=== PATIENT | male | born 1965 ===

== ENCOUNTER 2018-09-02 15:38 | Emergency (ER) | payer SELFPAY ==
[~2018-09-02] VITALS: Ht 177.8 cm; Wt 85.0 kg
[2018-09-02] MEDS ORDERED: TETANUS, DIPHTHERIA, PERTUSSIS VAC/PF 0.5ML (>7YR OLD) IM ONE (16:30)
[2018-09-02 19:09] VITALS: BP 154/72
== END 2018-09-02 19:15 | disposition home or self-care (01) ==
LOC: ER 15:38
DX: S09.8XXA Other specified injuries of head, initial encounter (principal); S00.01XA Abrasion of scalp, initial encounter; Y08.89XA Assault by other specified means, initial encounter; Y93.89 Activity, other specified; Y92.89 Other specified places as the place of occurrence of the external cause
CPT/HCPCS: 90471; 90715; 99284